=== PATIENT | female | born 1995 | race Caucasian/White ===

== ENCOUNTER → 2024-05-01 | Outpatient (CLI) | payer OTHER | LOC: LAB 14:00 → LAB SHORT 14:00 | DX: L08.9 Local infection of the skin and subcutaneous tissue, unspecified (principal); L73.9 Follicular disorder, unspecified; L85.8 Other specified epidermal thickening; L65.9 Nonscarring hair loss, unspecified | CPT/HCPCS: 87070; 87205 ==